=== PATIENT | female | born 1955 | race Caucasian/White ===

== ENCOUNTER → 2016-05-05 | Outpatient (CLI) | payer OTHER ==
[~2016-05-05] VITALS: Ht 156.2 cm; Wt 105.5 kg
[~2016-05-05] MED LIST: ALAVERT10 M1 PO; AMITRIPTYLINE H10 M1 PO; AMITRIPTYLINE H25 M1 PO; AQUAPHOR1 OI1 TP; ATOXIMETIN-B1 CAP PO; BIOIDENTICAL HORMONE SL; BUDEPRION SR100 MG PO; CALCIUM 500500 M2 PO; CITALOPRAM20 MG PO; CYMBALTA30 MG PO; ELAVIL25 MG PO; FISH OIL 1000MG1 CAP PO; FLEXERIL 1010 MG/TAB PO; FLONASE NASAL S16 GM NS; HYDROCODONE/APAP PO; IMITREX100 MG PO; IMITREX50 MG PO; LIPITOR 10MG10 MG PO; LIPITOR20 MG PO; LODINE400 MG PO; METAMUCIL1 PDR PO; METFORMIN500 MG PO; MIRALAX PA17 GM/Dose PO; MIRALAX119G PO; MIRALAX17 GM/DOSE PO; MUCINEX 60600 MG/TA1 PO; MUCINEX1200 MG PO; MUCINEX600 M1 PO; NIASPAN 500MG500 MG PO; NYSTATIN POWDER15 GM TOP; PERCOCET 325 MG1 TA2 PO; PHENTERMINE15 MG; PHENTERMINE15 MG PO; PRILOSEC 20MG20 MG PO; PRILOSEC PO; PRILOSEC10 MG PO; PROBIOTIC FORMU1 CAP PO; PROVENTIL0.09 MG/A1 IH; PSYLLIUM PO; REVIA 50MG TABL50 MG PO; SALINE NASAL 4444 ML NS; SAVELLA25 MG PO; SINGULAIR 110 MG/TAB PO; SYNTHROID0.05 MG PO; SYNTHROID0.1 MG/TAB PO; SYNTHROID0.112 MG/T PO; SYNTHROID0.125 MG/T PO; VALIUM 2MG T2 MG/TAB PO; VICODIN 5/5001 UDTAB PO; VITAMIN D1000 IU PO; VITAMIN D31000 IU PO; VITAMIND3 5000 PO; WELLBUTRIN 100100 MG PO; WELLBUTRIN 75MG75 MG PO; WELLBUTRIN XL150 MG PO; ZANTAC 150MG T150 MG; ZANTAC 150MG T150 MG PO; [UNRECOGNIZED DRUG - CODE]; [UNRECOGNIZED DRUG - OTHER] NS; [UNRECOGNIZED DRUG - OTHER] OU; [UNRECOGNIZED DRUG - OTHER] OU; [UNRECOGNIZED DRUG - OTHER] PO; [UNRECOGNIZED DRUG - OTHER] PO; [UNRECOGNIZED DRUG - OTHER] PO; [UNRECOGNIZED DRUG - OTHER] PO; [UNRECOGNIZED DRUG - REMARK] PO; penicillin
[2016-05-05 14:46] VITALS: BP 128/80; PULSE 80
[2016-05-05 15:05] VITALS: BP 128/80; PULSE 80
[2016-05-05 15:11] VITALS: BP 128/80; PULSE 80
== END ==
LOC: LIGHT 14:44
DX: E88.81 Metabolic syndrome and other insulin resistance (principal); E78.4 Other hyperlipidemia; E66.01 Morbid (severe) obesity due to excess calories; Z68.41 Body mass index [BMI] 40.0-44.9, adult

== ENCOUNTER → 2016-06-02 | Outpatient (CLI) | payer OTHER ==
[~2016-06-02] VITALS: Ht 156.2 cm; Wt 103.6 kg
== END ==
LOC: LIGHT 08:48
DX: E88.81 Metabolic syndrome and other insulin resistance (principal); E78.4 Other hyperlipidemia; E66.01 Morbid (severe) obesity due to excess calories; Z68.41 Body mass index [BMI] 40.0-44.9, adult

== ENCOUNTER 2016-06-29 18:00 | Emergency (ER) | payer OTHER ==
[~2016-06-29] VITALS: Ht 157.5 cm; Wt 103.2 kg
[~2016-06-29 18:00] MED LIST changes: -NYSTATIN POWDER15 GM TOP; -REVIA 50MG TABL50 MG PO; -WELLBUTRIN XL150 MG PO
[2016-06-29 18:02] VITALS: BP 138/67; TEMP 98.4
[2016-06-29 19:31] LABS: BASO % 0.3 % (0.0-2.0); EOS # 0.1 (0.0-0.7); GRAN # 4.6 (1.4-6.5); GRAN % 65.3 % (42.2-75.2); HEMATOCRIT 42.6 % (37.0-47.0); HEMOGLOBIN 14.3 g/dl (12.5-16.0); LYMPH # 1.6 (1.2-3.4); LYMPH % 23.2 % (20.0-51.0); MEAN CELL VOLUME 85 fl (80.0-100.0); MEAN CORPUSCULAR HEMOGLOBIN 29 pg (27.0-31.0); MEAN CORPUSCULAR HGB CONC 34 g/dl (33.0-37.0); MEAN PLATELET VOLUME 10.9 fl (7.4-10.4); MONO # 0.6 (0.1-0.6); MONO % 8.9 % (1.7-9.3); PLATELET COUNT 178 K/mm3 (130-400); RED BLOOD COUNT 4.99 M/mm3 (4.10-5.30); REDCELL DISTRIBUTION WIDTH-CV 13.1 % (11.5-14.5)
[2016-06-29 19:53] LABS: ERYTHROCYTE SEDIMENTATION RATE 1 mm/hr (0-30)
[2016-06-29 20:06] VITALS: PULSE 64
[2016-06-30] MEDS ORDERED: WELLBUTRIN XL150 MG PO (09:26)
[2016-06-30] MEDS ORDERED: REVIA 50MG TABL50 MG PO (09:27)
[2016-11-03] MEDS ORDERED: NYSTATIN POWDER15 GM TOP (09:11)
== END 2016-06-29 20:07 | disposition home or self-care (01) ==
LOC: COL.ER 18:00
PROVIDERS: Physician Assistant
DX: M25.552 Pain in left hip (principal); M25.551 Pain in right hip
CPT/HCPCS: J1885

== ENCOUNTER → 2016-06-30 | Outpatient (CLI) | payer OTHER ==
[~2016-06-30] VITALS: Ht 156.2 cm; Wt 103.2 kg
[~2016-06-30] MED LIST changes: +NYSTATIN POWDER15 GM TOP; +REVIA 50MG TABL50 MG PO; +WELLBUTRIN XL150 MG PO
[2016-06-30 09:28] VITALS: BP 132/63; PULSE 66
== END ==
LOC: LIGHT
DX: E88.81 Metabolic syndrome and other insulin resistance (principal); R73.01 Impaired fasting glucose; E78.4 Other hyperlipidemia; E66.01 Morbid (severe) obesity due to excess calories; Z68.41 Body mass index [BMI] 40.0-44.9, adult

== ENCOUNTER → 2016-07-07 | Outpatient (CLI) | payer OTHER | LOC: MC.RAD 11:15 | DX: Z12.31 Encounter for screening mammogram for malignant neoplasm of breast (principal) ==

== ENCOUNTER → 2016-08-04 | Outpatient (CLI) | payer OTHER ==
[~2016-08-04] VITALS: Ht 156.2 cm; Wt 98.4 kg
[2016-08-04 09:21] VITALS: BP 115/62; PULSE 78
== END ==
LOC: LIGHT 09:20
DX: E88.81 Metabolic syndrome and other insulin resistance (principal); E78.4 Other hyperlipidemia; E66.01 Morbid (severe) obesity due to excess calories; Z68.41 Body mass index [BMI] 40.0-44.9, adult; Z90.710 Acquired absence of both cervix and uterus; Z90.721 Acquired absence of ovaries, unilateral

== ENCOUNTER → 2016-09-01 | Outpatient (CLI) | payer OTHER ==
[~2016-09-01] VITALS: Ht 156.2 cm; Wt 95.9 kg
[2016-09-01 09:06] VITALS: BP 127/64; PULSE 63
== END ==
LOC: LIGHT 09:00
DX: E88.81 Metabolic syndrome and other insulin resistance (principal); E78.5 Hyperlipidemia, unspecified; E66.01 Morbid (severe) obesity due to excess calories; Z68.39 Body mass index [BMI] 39.0-39.9, adult; Z71.3 Dietary counseling and surveillance

== ENCOUNTER → 2016-11-03 | Outpatient (CLI) | payer OTHER ==
[~2016-11-03] VITALS: Ht 156.2 cm; Wt 92.1 kg
[2016-11-03 09:11] VITALS: BP 116/78; PULSE 94
== END ==
LOC: LIGHT 09:00
DX: E88.81 Metabolic syndrome and other insulin resistance (principal); E78.5 Hyperlipidemia, unspecified; E66.01 Morbid (severe) obesity due to excess calories; Z68.37 Body mass index [BMI] 37.0-37.9, adult; Z71.3 Dietary counseling and surveillance

== ENCOUNTER → 2016-12-08 | Outpatient (CLI) | payer OTHER ==
[~2016-12-08] VITALS: Ht 156.2 cm; Wt 89.8 kg
[2016-12-08 09:18] VITALS: BP 122/70; PULSE 64
== END ==
LOC: LIGHT 09:03
DX: E88.81 Metabolic syndrome and other insulin resistance (principal); E78.5 Hyperlipidemia, unspecified; E66.01 Morbid (severe) obesity due to excess calories; Z68.36 Body mass index [BMI] 36.0-36.9, adult; Z71.3 Dietary counseling and surveillance

== ENCOUNTER → 2017-01-26 | Outpatient (CLI) | payer OTHER ==
[~2017-01-26] VITALS: Ht 156.2 cm; Wt 91.6 kg
[2017-01-26 09:13] VITALS: BP 140/80; PULSE 60
== END ==
LOC: LIGHT 08:58
DX: E88.81 Metabolic syndrome and other insulin resistance (principal); E78.5 Hyperlipidemia, unspecified; E66.01 Morbid (severe) obesity due to excess calories; Z68.37 Body mass index [BMI] 37.0-37.9, adult; Z71.3 Dietary counseling and surveillance

== ENCOUNTER → 2017-04-06 | Outpatient (CLI) | payer OTHER ==
[~2017-04-06] VITALS: Ht 156.2 cm; Wt 89.8 kg
[2017-04-06 09:04] VITALS: BP 126/80; PULSE 64
== END ==
LOC: LIGHT 08:57
DX: E88.81 Metabolic syndrome and other insulin resistance (principal); E78.5 Hyperlipidemia, unspecified; E66.01 Morbid (severe) obesity due to excess calories; Z68.36 Body mass index [BMI] 36.0-36.9, adult; Z71.3 Dietary counseling and surveillance

== ENCOUNTER → 2017-04-18 | Outpatient (CLI) | payer OTHER | LOC: MC.RAD 13:52 | DX: R92.2 Inconclusive mammogram (principal); Z98.890 Other specified postprocedural states ==

== ENCOUNTER → 2017-04-21 | Outpatient (CLI) | payer OTHER | LOC: COL.RAD 12:18 | DX: G95.0 Syringomyelia and syringobulbia (principal); M51.24 Other intervertebral disc displacement, thoracic region | CPT/HCPCS: A9585 ==

== ENCOUNTER 2017-05-09 23:18 | Emergency (ER) | payer OTHER ==
[~2017-05-09] VITALS: Ht 157.5 cm; Wt 88.6 kg
[2017-05-09 23:28] VITALS: TEMP 97.6
[2017-05-10 00:12] VITALS: BP 131/85; PULSE 65
== END 2017-05-10 00:31 | disposition home or self-care (01) ==
LOC: COL.ER 23:18
DX: R07.89 Other chest pain (principal); M79.7 Fibromyalgia; G51.0 Bell's palsy; Z90.710 Acquired absence of both cervix and uterus; Z87.891 Personal history of nicotine dependence
CPT/HCPCS: J1885

== ENCOUNTER → 2017-06-22 | Outpatient (CLI) | payer OTHER ==
[~2017-06-22] VITALS: Ht 157.5 cm; Wt 93.9 kg
[2017-06-22 14:13] VITALS: BP 134/72; PULSE 72
== END ==
LOC: LIGHT 06-15 08:53
DX: E88.81 Metabolic syndrome and other insulin resistance (principal); E78.5 Hyperlipidemia, unspecified; E66.01 Morbid (severe) obesity due to excess calories; Z68.37 Body mass index [BMI] 37.0-37.9, adult; Z71.3 Dietary counseling and surveillance
CPT/HCPCS: G0463

== ENCOUNTER 2018-07-27 23:18 | Observation (INO) | payer OTHER ==
[~2018-07-27] VITALS: Ht 157.5 cm; Wt 100.1 kg
[2018-07-27 23:42] LABS: BASO % 0.4 % (0.0-2.0); EOS # 0.2 (0.0-0.7); EOS % 3.6 % (0-4.0); GRAN # 3.6 (1.4-6.5); GRAN % 53.7 % (42.2-75.2); HEMATOCRIT 42.2 % (37.0-47.0); HEMOGLOBIN 14.3 g/dl (12.5-16.0); LYMPH # 2.1 (1.2-3.4); LYMPH % 31.1 % (20.0-51.0); MEAN CELL VOLUME 86 fl (80.0-100.0); MEAN CORPUSCULAR HEMOGLOBIN 29 pg (27.0-31.0); MEAN CORPUSCULAR HGB CONC 34 g/dl (33.0-37.0); MEAN PLATELET VOLUME 10.9 fl (7.4-10.4); MONO # 0.7 (0.1-0.6); MONO % 10.9 % (1.7-9.3); PLATELET COUNT 167 K/mm3 (130-400); RED BLOOD COUNT 4.89 M/mm3 (4.10-5.30)
[2018-07-27 23:47] LABS: PROTHROMBIN TIME 11.7 SECONDS (9.7-12.8)
[2018-07-27 23:50] LABS: PARTIAL THROMBOPLASTIN TIME 32.9 SECONDS (26.0-37.0)
[2018-07-27 23:52] LABS: ALANINE AMINOTRANSFERASE 26 U/L (9-52); ALBUMIN 4.3 gm/dL (3.5-5.0); ALKALINE PHOSPHATASE 74 U/L (50-136); ANION GAP 11 mmol/L (7-16); AST,SGOT 21 U/L (15-37); BILIRUBIN,TOTAL 0.4 mg/dL (0.0-1.0); BLOOD UREA NITROGEN 12 mg/dL (7-17); CALCIUM 9.2 mg/dL (8.4-10.2); CARBON DIOXIDE 20 mmol/L (22-30); CHLORIDE 108 mmol/L (98-107); CREATININE, serum 0.73 (0.52-1.25); GLUCOSE 85 mg/dL (74-106); LIPASE 748 U/L (23-300); POTASSIUM 3.7 mmol/L (3.4-5.0); SODIUM 139 mmol/L (137-145); TOTAL PROTEIN 7.1 gm/dL (6.4-8.2)
[2018-07-28 00:05] LABS: TROPONIN-I < 0.012 ng/mL (0.000-0.035)
[2018-07-28] MEDS ORDERED: COLACE 100100 MG/CAP PO (02:15)
[2018-07-28] MEDS ORDERED: NORCO 325 MG-51 TAB PO (02:16)
[2018-07-28] MEDS ORDERED: PRESERVISION1 SGL PO (02:16)
[2018-07-28] MEDS ORDERED: NATURE'S BLE1000 MCG PO (02:17)
[2018-07-28] MEDS ORDERED: TERAZOL0.4% VG (02:18)
--- NOTE | 2018-07-28 04:29 | NUR ---
Patient arrived to medical floor. Assessment complete. Lungs clear. Bowels active x4. Pulses strong. Bilateral lower leg edema +1. INT to right AC. Denies pain. Orientated to medical floor and room. Denies other needs. Call light in reach.
[2018-07-28 04:36] VITALS: BP 127/58; PULSE 55; TEMP 98.4
[2018-07-28 06:36] LABS: CHOLESTEROL RISK RATIO 4.6
--- NOTE | 2018-07-28 06:42 | NUR ---
Resting in bed this AM. Call light in reach. No reports of chest pain.
[2018-07-28 07:05] LABS: TSH w REFLEX 2.27 uIU/mL (0.465-4.680)
--- NOTE | 2018-07-28 07:24 | NUR ---
Report given NOAH Rubalcava.
[2018-07-28 07:39] VITALS: BP 147/65; PULSE 61; TEMP 98.4
--- NOTE | 2018-07-28 08:50 | NUR ---
Pt sitting up in bed, finished all breakfast. Denies any chest pain, is having a difficult time taking deep breath at times. Breathing is even and unlabored. Breath sounds clear. Denies pain. Cardiology had been in already. Pt ready to discharge today if possible. Denies any needs, call light in reach.
[2018-07-28 11:12] VITALS: BP 140/64; PULSE 63; TEMP 97.9
--- NOTE | 2018-07-28 12:16 | NUR ---
PT IN ROOM SITTING UP EATING LUNCH. EXPLAINED TO PT ECHO WILL NOT BE COMPLETED TODAY. WILL BE DONE OUTPATIENT AND WILL BE DISCHARGED THIS AFTERNOON. DENIES ANY PAIN OR NEEDS AT THIS TIME.
--- NOTE | 2018-07-28 12:47 | NUR ---
DISCHARGE PAPERWORK GIVEN AND SIGNED. ALL QUESTIONS ASKED AND ANSWERED. IV TAKEN OUT, CATHETER TIP INTACT, NO REDNESS OR SWELLING NOTED.
--- NOTE | 2018-07-28 12:51 | NUR ---
PT WALKED OUT WITH VIA [facility]IG[facility] STAFF
== END 2018-07-28 12:52 | disposition home or self-care (01) ==
LOC: COL.ER 23:18 → MEDICAL 07-28 02:22 → COL.ER 07-28 02:22 → MEDICAL 07-28 02:22
PROVIDERS: Emergency Medicine; Nurse Practitioner; ADMIT Internal Medicine
DX: R07.9 Chest pain, unspecified (principal); E03.9 Hypothyroidism, unspecified; J45.909 Unspecified asthma, uncomplicated; E78.5 Hyperlipidemia, unspecified; G50.0 Trigeminal neuralgia; G51.0 Bell's palsy; Z90.710 Acquired absence of both cervix and uterus; Z79.51 Long term (current) use of inhaled steroids; Z87.891 Personal history of nicotine dependence; Z82.49 Family history of ischemic heart disease and other diseases of the circulatory system; Z83.3 Family history of diabetes mellitus; Z88.2 Allergy status to sulfonamides; Z88.8 Allergy status to other drugs, medicaments and biological substances; Z91.018 Allergy to other foods; G47.33 Obstructive sleep apnea (adult) (pediatric)
CPT/HCPCS: G0378; J7030; Q9967

== ENCOUNTER → 2018-08-02 | Outpatient (CLI) | payer OTHER ==
[~2018-08-02] MED LIST changes: +COLACE 100100 MG/CAP PO; +NATURE'S BLE1000 MCG PO; +NORCO 325 MG-51 TAB PO; +PRESERVISION1 SGL PO; +TERAZOL0.4% VG
== END ==
LOC: COL.VAS 10:30
DX: I51.7 Cardiomegaly (principal)

== ENCOUNTER → 2018-09-11 | Outpatient (CLI) | payer OTHER | LOC: MC.RAD 15:35 | DX: Z12.31 Encounter for screening mammogram for malignant neoplasm of breast (principal) ==

== ENCOUNTER 2018-09-19 08:38 | Day surgery (SDC) | payer OTHER ==
[2018-09-19] VITALS (10 sets, daily range): BP systolic 130–144; BP diastolic 60–84; PULSE 74–83; TEMP 98–98.5
[~2018-09-19] VITALS: Ht 157.6 cm; Wt 89.1 kg
[2018-09-19 09:22] LABS: HEMATOCRIT 42.1 % (37.0-47.0); HEMOGLOBIN 14.6 g/dl (12.5-16.0); MEAN CELL VOLUME 87 fl (80.0-100.0); MEAN CORPUSCULAR HEMOGLOBIN 30 pg (27.0-31.0); MEAN CORPUSCULAR HGB CONC 35 g/dl (33.0-37.0); MEAN PLATELET VOLUME 10.6 fl (7.4-10.4); PLATELET COUNT 194 K/mm3 (130-400); RED BLOOD COUNT 4.82 M/mm3 (4.10-5.30)
[2018-09-19 09:25] LABS: INR 1.1 (0.8-3.0); PROTHROMBIN TIME 12.6 SECONDS (9.7-12.8)
[2018-09-19 09:37] LABS: CALCIUM 9.7 mg/dL (8.4-10.2); CREATININE, serum 0.64 (0.52-1.25); POTASSIUM 4.3 mmol/L (3.4-5.0)
[2018-09-19] MEDS ORDERED: TEGRETOL 2200 MG/TA1 PO (09:55)
--- NOTE | 2018-09-19 11:01 | NUR ---
SEE MERGE REPORTS FOR MEDICATION ADMINISTRATION TIMES AND INTRA/POST PROCEDURE SEDATION ASSESSMENTS.
--- NOTE | 2018-09-19 11:35 | NUR ---
pt to eu 11 via bed from rn cardiac cath, with pt. pt drowsy, opens eyes and speaks with staff, call light in reach, radial site with band on.
--- NOTE | 2018-09-19 13:00 | NUR ---
pt sits up eats meal, then up to b/r, tolerated well. no c/o
--- NOTE | 2018-09-19 13:30 | NUR ---
band released slowly, 5cc removed with 5 min wait then 5cc removed again no bleeding or swelling noted, band removed, dressing applied
--- NOTE | 2018-09-19 13:50 | NUR ---
reviewed discharge inst. with pt and . reviewed activity orders, site care and when to call Dr with verbal understanding. Appt for 2 weeks made for pt at office. reviewed with pt when to shower and limit to right hand also. iv d'cd intact. pt up in room dressed
--- NOTE | 2018-09-19 14:30 | NUR ---
pt discharged via w/c to car with
== END 2018-09-19 14:30 | disposition home or self-care (01) ==
LOC: COL.CAR 08:38
PROVIDERS: Internal Medicine Cardiovascular Disease
DX: R07.9 Chest pain, unspecified (principal); R06.00 Dyspnea, unspecified; I10 Essential (primary) hypertension; Z79.899 Other long term (current) drug therapy; E78.5 Hyperlipidemia, unspecified; E03.9 Hypothyroidism, unspecified; E66.9 Obesity, unspecified; Z68.41 Body mass index [BMI] 40.0-44.9, adult; Z82.49 Family history of ischemic heart disease and other diseases of the circulatory system; N39.41 Urge incontinence; J45.909 Unspecified asthma, uncomplicated; G47.33 Obstructive sleep apnea (adult) (pediatric); K22.70 Barrett's esophagus without dysplasia; Z90.710 Acquired absence of both cervix and uterus
CPT/HCPCS: J1200; J1644; J2250; J2930; J3010; Q9967

== ENCOUNTER 2019-01-18 09:46 | Day surgery (SDC) | payer OTHER ==
[~2019-01-18] VITALS: Ht 157.5 cm; Wt 101.0 kg
[~2019-01-18 09:46] MED LIST changes: +HARD NAILS 2.51 CAP PO; -NATURE'S BLE1000 MCG PO; +TEGRETOL 2200 MG/TA1 PO
[2019-01-18] MEDS ORDERED: PRIL40 PO (10:09)
[2019-01-18] MEDS ORDERED: ZYRTEC 10MG10 MG PO (10:10)
[2019-01-18] MEDS ORDERED: HCTZ 25MG TAB25 MG PO (10:11)
[2019-01-18] MEDS ORDERED: ALREX 5 ML5 ML OU (10:15)
[2019-01-18 10:50] VITALS: BP 142/69; PULSE 60; TEMP 98
[2019-01-18 11:45] VITALS: BP 122/60; PULSE 78
--- NOTE | 2019-01-18 11:45 | NUR ---
Patient returns to bay 2 per cart and transfers from cart to recliner with two person assist. IV fluids infusing #22G RH. Spouse in room. Call light in reach. Denies difficulty swallowing. Offered fluids and states that she wishes to rest.
[2019-01-18 12:00] VITALS: BP 118/65; PULSE 63
--- NOTE | 2019-01-18 12:00 | NUR ---
Dr. Bonds here and talks with the patient and all questions answered.
--- NOTE | 2019-01-18 12:15 | NUR ---
Eating muffin and drinking applejuice. IV fluids infusing.
--- NOTE | 2019-01-18 12:30 | NUR ---
IV discontinued and patient dresses self.
--- NOTE | 2019-01-18 12:39 | NUR ---
Dismissal instructions signed and voices understanding of home cares.
--- NOTE | 2019-01-18 12:43 | NUR ---
Patient dismissed to home per private vehicle driven by spouse and taken to the front door per wheelchair and assisted into car by this RN with instructions.
== END 2019-01-18 12:43 | disposition home or self-care (01) ==
LOC: SDCO 09:46
DX: K22.70 Barrett's esophagus without dysplasia (principal); K21.0 Gastro-esophageal reflux disease with esophagitis; Z88.8 Allergy status to other drugs, medicaments and biological substances; Z91.041 Radiographic dye allergy status; Z91.040 Latex allergy status; E11.9 Type 2 diabetes mellitus without complications; E07.9 Disorder of thyroid, unspecified; J45.909 Unspecified asthma, uncomplicated; E78.00 Pure hypercholesterolemia, unspecified; F41.9 Anxiety disorder, unspecified; F32.9 Major depressive disorder, single episode, unspecified; K76.0 Fatty (change of) liver, not elsewhere classified; K59.09 Other constipation
CPT/HCPCS: J2250; J3010; J7030

== ENCOUNTER 2019-08-29 12:20 | Emergency (ER) | payer OTHER ==
[~2019-08-29] VITALS: Ht 157.5 cm; Wt 99.5 kg
[~2019-08-29 12:20] MED LIST changes: +ALREX 5 ML5 ML OU; +HCTZ 25MG TAB25 MG PO; +PRIL40 PO; +ZYRTEC 10MG10 MG PO
[2019-08-29 12:48] VITALS: TEMP 98.2
[2019-08-29 13:54] LABS: COLLECTION METHOD CLEAN CATCH
[2019-08-29 14:02] LABS: BASO % 0.3 % (0.0-2.0); EOS # 0.1 (0.0-0.7); EOS % 0.6 % (0-4.0); GRAN # 6.2 (1.4-6.5); GRAN % 70.8 % (42.2-75.2); HEMATOCRIT 41.9 % (37.0-47.0); HEMOGLOBIN 14.5 g/dl (12.5-16.0); LYMPH # 1.3 (1.2-3.4); LYMPH % 14.9 % (20.0-51.0); MEAN CELL VOLUME 84 fl (80.0-100.0); MEAN CORPUSCULAR HEMOGLOBIN 29 pg (27.0-31.0); MEAN CORPUSCULAR HGB CONC 35 g/dl (33.0-37.0); MEAN PLATELET VOLUME 10.9 fl (7.4-10.4); MONO # 1.2 (0.1-0.6); MONO % 13.2 % (1.7-9.3); PLATELET COUNT 165 K/mm3 (130-400); RED BLOOD COUNT 5.02 M/mm3 (4.10-5.30); REDCELL DISTRIBUTION WIDTH-CV 13.3 % (11.5-14.5)
[2019-08-29 14:04] LABS: PH 7 (5-8); URINE APPEARANCE Hazy; URINE BACTERIA Rare /hpf; URINE BILIRUBIN Negative (NEGATIVE); URINE BLOOD Negative (NEGATIVE); URINE COLOR Yellow; URINE GLUCOSE Negative (NEGATIVE); URINE KETONE 1+ (NEGATIVE); URINE LEUKOCYTE ESTERASE Trace (NEGATIVE); URINE NITRATE Negative (NEGATIVE); URINE PROTEIN(semi-quant) Negative (NEGATIVE); URINE UROBILINOGEN Negative (NEGATIVE)
[2019-08-29 14:13] LABS: ALBUMIN 4.4 gm/dL (3.5-5.0); BILIRUBIN,TOTAL 0.6 mg/dL (0.0-1.0); C-REACTIVE PROTEIN 5.1 mg/dL (0.0-0.9); CALCIUM 9.4 mg/dL (8.4-10.2); CREATININE, serum 0.67 (0.52-1.25); POTASSIUM 3.1 mmol/L (3.4-5.0); TOTAL PROTEIN 7.5 gm/dL (6.4-8.2)
[2019-08-29] MEDS ORDERED: CIPRO 500MG TA500 MG PO (15:26)
[2019-08-29] MEDS ORDERED: ZOFRAN 4MG T4 MG/TAB PO (15:27)
[2019-08-29 15:37] VITALS: BP 141/48; PULSE 72
== END 2019-08-29 15:40 | disposition home or self-care (01) ==
LOC: COL.ER 12:20
PROVIDERS: Nurse Practitioner Primary Care
DX: K52.9 Noninfective gastroenteritis and colitis, unspecified (principal); K21.9 Gastro-esophageal reflux disease without esophagitis
CPT/HCPCS: J2405; J3010; J7030

== ENCOUNTER 2020-04-30 09:50 | Emergency (ER) | payer OTHER ==
[~2020-04-30] VITALS: Ht 154.9 cm; Wt 95.0 kg
[~2020-04-30 09:50] MED LIST changes: +CIPRO 500MG TA500 MG PO; +ZOFRAN 4MG T4 MG/TAB PO
[2020-04-30 09:56] VITALS: TEMP 97.2
[2020-04-30] MEDS ORDERED: MOBIC 7.5MG7.5 MG PO (11:47)
[2020-04-30] MEDS ORDERED: FLEXERIL 1010 MG/TAB PO (11:47)
[2020-04-30 11:57] VITALS: BP 105/48; PULSE 62
== END 2020-04-30 11:58 | disposition home or self-care (01) ==
LOC: COL.ER 09:50
DX: M54.5 Low back pain (principal); G89.29 Other chronic pain; Z90.710 Acquired absence of both cervix and uterus; Z87.891 Personal history of nicotine dependence; Z88.2 Allergy status to sulfonamides; Z88.8 Allergy status to other drugs, medicaments and biological substances
CPT/HCPCS: J1885

== ENCOUNTER 2020-08-04 13:45 | Outpatient (RCR) | payer OTHER ==
[~2020-08-04 13:45] MED LIST changes: +MOBIC 7.5MG7.5 MG PO
== END 2020-08-09 | disposition still patient (30) ==
LOC: WSC
DX: M54.5 Low back pain (principal)

== ENCOUNTER → 2020-08-31 | Outpatient (CLI) | payer OTHER | LOC: MC.RAD 13:00 | DX: Z12.31 Encounter for screening mammogram for malignant neoplasm of breast (principal) ==

== ENCOUNTER 2020-09-08 14:00 | Outpatient (RCR) | payer OTHER | END 2020-11-11 | LOC: WSC | DX: M54.5 Low back pain (principal) ==

== ENCOUNTER 2021-03-26 09:00 | Day surgery (SDC) | payer OTHER ==
[~2021-03-26] VITALS: Ht 154.9 cm; Wt 102.8 kg
[2021-03-26] MEDS ORDERED: LEVOXYL0.112 MG PO (09:39)
[2021-03-26] MEDS ORDERED: PROTONIX20 MG PO (09:40)
[2021-03-26] MEDS ORDERED: LEVOXYL0.1 MG PO (09:40)
[2021-03-26] MEDS ORDERED: ZYBAN150 M1 PO (09:40)
[2021-03-26] MEDS ORDERED: DULCOLAX STOOL100 MG PO (09:41)
[2021-03-26] MEDS ORDERED: MULTI VITAMINS1 TAB PO (09:41)
[2021-03-26] MEDS ORDERED: HCTZ 25MG TAB25 MG PO (09:41)
[2021-03-26] MEDS ORDERED: PRESERVISION1 SGL PO (09:42)
[2021-03-26] MEDS ORDERED: EPA FISH OIL1 SGL PO (09:42)
[2021-03-26] MEDS ORDERED: NATURAL POTASS595 MG PO (09:47)
[2021-03-26] MEDS ORDERED: MAGNESIUM250 M1 PO (09:48)
[2021-03-26] MEDS ORDERED: ASPIRIN 81M81 MG/TA2 PO (09:48)
[2021-03-26] MEDS ORDERED: SINGULAIR 110 MG/TAB PO (09:49)
[2021-03-26] MEDS ORDERED: MASON NATURAL2000 IU PO (09:49)
[2021-03-26] MEDS ORDERED: LIPITOR 10MG10 MG PO (09:49)
[2021-03-26] MEDS ORDERED: PROVENTIL0.09 MG/A1 IH (09:50)
[2021-03-26] MEDS ORDERED: COLACE 100100 MG/CAP PO (09:50)
[2021-03-26 09:51] VITALS: BP 127/71; PULSE 67; TEMP 97.7
[2021-03-26] MEDS ORDERED: FLOVENT 110MCG7.9 GM IH (09:51)
[2021-03-26 11:15] VITALS: BP 126/61; PULSE 64
--- NOTE | 2021-03-26 11:15 | NUR ---
Patient returns to bay 4 per cart and transfers to recliner with two person assist. IV fluids infusing. Temp 97.9. Room air sats 96%. Spouse in room.
[2021-03-26 11:30] VITALS: BP 126/81; PULSE 68
--- NOTE | 2021-03-26 11:30 | NUR ---
Eating muffin and drinking water. Denies nausea.
[2021-03-26 11:45] VITALS: BP 136/71; PULSE 63
--- NOTE | 2021-03-26 11:45 | NUR ---
Resting and denies difficulty swallowing. Room air sats 100%.
--- NOTE | 2021-03-26 12:07 | NUR ---
IV discontinued and site is free of redness or swelling and given dismissal instructions. Patient voices understanding of these. Dresses self.
--- NOTE | 2021-03-26 12:10 | NUR ---
Patient dismissed to home driven by spouse and taken to the front door per wheelchair and assisted into vehicle with instructions in hand.
== END 2021-03-26 12:10 | disposition home or self-care (01) ==
LOC: SDCO 09:00
DX: K22.70 Barrett's esophagus without dysplasia (principal); K21.9 Gastro-esophageal reflux disease without esophagitis; E78.5 Hyperlipidemia, unspecified; G47.33 Obstructive sleep apnea (adult) (pediatric); G43.909 Migraine, unspecified, not intractable, without status migrainosus; G89.29 Other chronic pain; M54.9 Dorsalgia, unspecified; E03.9 Hypothyroidism, unspecified; K59.00 Constipation, unspecified; M79.7 Fibromyalgia; R73.01 Impaired fasting glucose; F32.A Depression, unspecified; Z90.710 Acquired absence of both cervix and uterus; Z79.899 Other long term (current) drug therapy; Z79.890 Hormone replacement therapy; Z99.89 Dependence on other enabling machines and devices; Z79.82 Long term (current) use of aspirin; Z79.891 Long term (current) use of opiate analgesic
CPT/HCPCS: J2704; J7030

== ENCOUNTER 2021-07-31 14:01 | Emergency (ER) | payer OTHER ==
[~2021-07-31 14:01] MED LIST changes: +ASPIRIN 81M81 MG/TA2 PO; +DULCOLAX STOOL100 MG PO; +EPA FISH OIL1 SGL PO; +FLOVENT 110MCG7.9 GM IH; +LEVOXYL0.1 MG PO; +LEVOXYL0.112 MG PO; +MAGNESIUM250 M1 PO; +MASON NATURAL2000 IU PO; +MULTI VITAMINS1 TAB PO; +NATURAL POTASS595 MG PO; +PROTONIX20 MG PO; +ZYBAN150 M1 PO
[2021-07-31 14:34] LABS: HEMATOCRIT 46.6 % (37.0-47.0); HEMOGLOBIN 16.2 g/dl (12.5-16.0); MEAN CELL VOLUME 86 fl (80.0-100.0); MEAN CORPUSCULAR HEMOGLOBIN 30 pg (27-31); MEAN CORPUSCULAR HGB CONC 35 g/dl (33.0-37.0); MEAN PLATELET VOLUME 10.4 fl (7.4-10.4); PLATELET COUNT 196 K/mm3 (130-400); RED BLOOD COUNT 5.45 M/mm3 (4.10-5.30); REDCELL DISTRIBUTION WIDTH-CV 13.2 % (11.5-14.5)
[2021-07-31 14:52] LABS: BILIRUBIN,TOTAL 0.6 mg/dL (0.2-1.2); CALCIUM 8.7 mg/dL (8.4-10.2); CREATININE, serum 0.86 mg/dL (0.57-1.11); POTASSIUM 3.8 mmol/L (3.5-4.5); TOTAL PROTEIN 7.2 gm/dL (6.2-8.1)
[2021-07-31 14:57] LABS: BAND 10 % (0-10); LYMPHOCYTE 1 % (20.0-51.0); NEUTROPHILS 87 % (42.0-75.2); PLATELET ESTIMATE NORMAL (NORMAL)
[2021-07-31 17:17] VITALS: BP 176/67; PULSE 95; TEMP 98.7
== END 2021-07-31 17:17 | disposition home or self-care (01) ==
LOC: COL.ER 14:01
PROVIDERS: Personal Emergency Response Attendant
DX: R51.9 Headache, unspecified (principal); R10.84 Generalized abdominal pain; R11.10 Vomiting, unspecified; Z86.69 Personal history of other diseases of the nervous system and sense organs
CPT/HCPCS: J1200; J1885; J2270; J2405; J2930; J7030; Q9967

== ENCOUNTER → 2021-09-14 | Outpatient (CLI) | payer OTHER | LOC: MC.RAD 07:50 | DX: Z12.31 Encounter for screening mammogram for malignant neoplasm of breast (principal) ==

== ENCOUNTER → 2023-07-20 | Outpatient (CLI) | payer OTHER | LOC: MC.RAD 09:54 | DX: Z12.31 Encounter for screening mammogram for malignant neoplasm of breast (principal) ==